=== PATIENT | female | born 1985 | race Caucasian/White ===

== ENCOUNTER → 2021-09-08 09:11 | Outpatient (CLI) | payer OTHER, SELFPAY ==
--- NOTE | 2021-09-08 09:43 | DI.US.S_ITS ---
PROCEDURE: US OB <= 14 WEEKS FETUS INDICATIONS: DATES OUTSIDE/PRIOR DATING DATA: Last menstrual period (LMP): July 02, 2021. LMP-based estimated date of delivery (NATALY): April 08, 2022. First dating scan (date and location): September 08, 2021: [facility]. Estimated date of delivery (NATALY) from first dating scan: April 23, 2022. TECHNIQUE: Real-time scanning was performed of the fetus and maternal pelvic organs, with image documentation. Endovaginal scanning was also performed to better visualize the fetus and maternal ovaries. COMPARISON: None. FINDINGS: Embryo: A single intrauterine gestation is seen with crown-rump length measuring 1.3 cm, compatible with a 7 week, 4 day gestation. Heart rate: No detectable heart rate. Maternal organs: No significant abnormality. IMPRESSION: No detectable heart rate, compatible with demise. Dictated by: Eliseo Howe M.D. on 09/08/2021 at 11:12 Approved by: Eliseo Howe M.D. on 09/08/2021 at 11:19
== END ==
PROVIDERS: PCP Acupuncturist; Referring Provider Obstetrics & Gynecology; Visit Provider Obstetrics & Gynecology
DX: Z34.01 Encounter for supervision of normal first pregnancy, first trimester (principal); Z3A.01 Less than 8 weeks gestation of pregnancy
CPT/HCPCS: 76801; 76817

== ENCOUNTER → 2022-01-02 06:28 | Outpatient (CLI) | payer OTHER, SELFPAY ==
[2022-01-02 08:28] LABS: Final Volume 0.5 mL; Semen 30 min. Liquification? Yes
== END ==
PROVIDERS: PCP Acupuncturist; Referring Provider Obstetrics & Gynecology; Visit Provider Obstetrics & Gynecology
DX: Z31.69 Encounter for other general counseling and advice on procreation (principal)
CPT/HCPCS: 58323

== ENCOUNTER → 2022-02-26 08:44 | Outpatient (CLI) | payer OTHER, SELFPAY ==
[2022-02-26 10:11] LABS: Final Volume 0.5 mL; Initial Volume 6 mL; Semen 30 min. Liquification? Yes
== END ==
PROVIDERS: PCP Family Medicine; Referring Provider Obstetrics & Gynecology; Visit Provider Obstetrics & Gynecology
DX: Z31.69 Encounter for other general counseling and advice on procreation (principal)
CPT/HCPCS: 58323

== ENCOUNTER → 2022-06-23 09:07 | Outpatient (CLI) | payer OTHER, SELFPAY ==
[2022-06-23 09:40] LABS: Initial Volume 6.5 mL; Semen 30 min. Liquification? Yes
[2022-06-23 10:16] LABS: Final Volume 0.5 mL
== END ==
PROVIDERS: PCP Family Medicine; Referring Provider Obstetrics & Gynecology; Visit Provider Obstetrics & Gynecology
DX: Z31.9 Encounter for procreative management, unspecified (principal)
CPT/HCPCS: 58323

== ENCOUNTER → 2022-10-16 12:49 | Outpatient (CLI) | payer OTHER, SELFPAY ==
[2022-10-16 13:11] LABS: Semen 30 min. Liquification? Yes
[2022-10-16 14:08] LABS: Final Volume 0.5 mL
== END ==
PROVIDERS: PCP Family Medicine; Referring Provider Obstetrics & Gynecology; Visit Provider Obstetrics & Gynecology
DX: Z31.9 Encounter for procreative management, unspecified (principal)
CPT/HCPCS: 58323

== ENCOUNTER → 2023-08-28 10:38 | Outpatient (CLI) | payer OTHER, SELFPAY ==
[2023-08-28 14:45] LABS: Urine N gonorrhoeae NOT DETECTED
[2023-08-28 15:02] LABS: Urine Chlamydia NOT DETECTED
== END ==
PROVIDERS: PCP Psychiatry & Neurology Neurology; Visit Provider Specialist
DX: Z34.81 Encounter for supervision of other normal pregnancy, first trimester (principal); Z3A.09 9 weeks gestation of pregnancy
CPT/HCPCS: 87491; 87591

== ENCOUNTER → 2023-08-29 12:02 | Outpatient (CLI) | payer OTHER, SELFPAY ==
[2023-08-29 13:59] LABS: Specimen Label NATERA TEST KIT.
== END ==
PROVIDERS: Referring Provider Specialist; Visit Provider Specialist
DX: O09.521 Supervision of elderly multigravida, first trimester (principal)
CPT/HCPCS: 36415

== ENCOUNTER → 2023-09-25 09:06 | Outpatient (CLI) | payer OTHER, SELFPAY | PROVIDERS: Visit Provider Obstetrics & Gynecology | DX: Z34.81 Encounter for supervision of other normal pregnancy, first trimester (principal); Z3A.13 13 weeks gestation of pregnancy | CPT/HCPCS: 87086 ==

== ENCOUNTER → 2023-10-11 10:16 | Outpatient (CLI) | payer OTHER, SELFPAY ==
[2023-10-11 10:54] LABS: Add Manual Diff / Slide Review NO; Basophils Absolute Auto 0 /uL (0-100); Basophils Percent Auto 0.6 % (0-2); Eosinophils Absolute Auto 100 /uL (0-450); Eosinophils Percent Auto 0.9 % (2-4); Hemoglobin 11.4 g/dL (12.0-16.0); Lymphocytes Absolute Auto 1100 /uL (1100-4500); Lymphocytes Percent Auto 19.8 % (25-40); Mean Corpuscular HGB Conc 35.7 % (30-36); Mean Corpuscular Hemoglobin 32.5 PG (26-34); Mean Corpuscular Volume 90.8 fL (80-100); Monocytes Absolute Auto 400 /uL (0-900); Monocytes Percent Auto 6.4 % (3-14); Neutrophils Absolute Auto 4100 /uL (1500-7000); Neutrophils Percent Auto 72.3 % (50-75); Platelet Count 175 X10^3/uL (150-400); Red Blood Cell Count 3.52 X10^6/uL (4.0-5.2); Red Cell Distribution Width 12.4 % (11.6-14.8); White Blood Cell Count 5.7 X10^3/uL (4.5-11.0)
[2023-10-11 11:53] LABS: Appearance Urine UA CLEAR; Bilirubin Urine UA NEGATIVE (NEGATIVE); Color Urine UA YELLOW; Glucose Urine UA NEGATIVE (Negative); Hepatitis B Surface Antigen NEGATIVE s/c (NEGATIVE); Ketones Urine UA NEGATIVE (NEGATIVE); Leukocyte Esterase Urine UA NEGATIVE (NEGATIVE); Nitrite Urine UA NEGATIVE (Negative); Occult Blood Urine UA NEGATIVE (Negative); Protein Urine UA NEGATIVE (Negative); Rubella Antibody IgG 3.8 IU/mL (>15); Specific Gravity Urine UA 1.015 (1.000-1.035); Urobilinogen Urine UA 0.2 E.U./dL (0.2)
[2023-10-11 11:56] LABS: pH Urine UA 7.5 (4.5-8.0)
[2023-10-11 12:19] LABS: HIV 1 & 2 Ab/Ag 4th Gen Combo NEGATIVE (NEGATIVE); Hep C Virus Ab w/Reflex Quant NEGATIVE s/c (NEGATIVE)
[2023-10-13 09:59] LABS: Varicella IgG Antibody 719 index (Immune >165)
[2023-10-16 10:42] LABS: AFP Value 57.5 ng/mL (.); Gest Age on Col Date 16.1 weeks (.); Gestational Age EDD (.); Insulin Dep Diabetes No (.); OSBR Risk 1IN 2398 (.); Results Report (.); Test Results *Screen Negative* (.)
[2023-10-17 08:13] LABS: RPR Screen Non Reactive (Non Reactive)
== END ==
PROVIDERS: PCP Family Medicine; Referring Provider Obstetrics & Gynecology; Visit Provider Obstetrics & Gynecology
DX: Z34.81 Encounter for supervision of other normal pregnancy, first trimester (principal); Z3A.13 13 weeks gestation of pregnancy; Z34.82 Encounter for supervision of other normal pregnancy, second trimester; Z3A.16 16 weeks gestation of pregnancy
CPT/HCPCS: 36415; 80055; 81003; 82105; 86695; 86696; 86787; 86803; 86850; 86900; 86901; 87389

== ENCOUNTER → 2023-11-14 13:02 | Outpatient (CLI) | payer OTHER, SELFPAY ==
[2023-11-14 14:31] LABS: Add Manual Diff / Slide Review NO; Basophils Absolute Auto 0 /uL (0-100); Basophils Percent Auto 0.6 % (0-2); Eosinophils Absolute Auto 100 /uL (0-450); Eosinophils Percent Auto 1.4 % (2-4); Hemoglobin 11.4 g/dL (12.0-16.0); Lymphocytes Absolute Auto 1300 /uL (1100-4500); Mean Corpuscular HGB Conc 35.6 % (30-36); Mean Corpuscular Hemoglobin 32.8 PG (26-34); Monocytes Absolute Auto 400 /uL (0-900); Neutrophils Absolute Auto 4600 /uL (1500-7000); Platelet Count 168 X10^3/uL (150-400); Red Blood Cell Count 3.48 X10^6/uL (4.0-5.2); Red Cell Distribution Width 12.4 % (11.6-14.8); White Blood Cell Count 6.3 X10^3/uL (4.5-11.0)
[2023-11-14 15:57] LABS: Aspartate Aminotransferase 22 IU/L (14-36); BUN Creatinine Ratio 8.7 (6-22); Blood Urea Nitrogen 4 mg/dL (7-17); Estimated Glomerular Filt Rate > 60 mL/min (>60); Uric Acid 2.3 mg/dL (2.5-6.2)
[2023-11-14 18:41] LABS: Creatinine Urine Random 44.1 mg/dL; Protein (Total) Urine Random 9 mg/dL (0-12)
[2023-11-15 19:41] LABS: Free T4, Direct Thyroxine 1.03 ng/dL (0.78-2.19)
[2023-11-15 19:55] LABS: Thyroid Stimulating Hormone 0.919 uIU/mL (0.47-4.68)
[2023-11-28 12:32] LABS: HSV 2 IGG AB 2.96
== END ==
PROVIDERS: PCP Family Medicine; Referring Provider Obstetrics & Gynecology; Visit Provider Obstetrics & Gynecology
DX: E03.9 Hypothyroidism, unspecified (principal); O09.812 Supervision of pregnancy resulting from assisted reproductive technology, second trimester; O09.519 Supervision of elderly primigravida, unspecified trimester
CPT/HCPCS: 36415; 82570; 84156; 84439; 84443; 84450; 84550; 85025; 86695; 86696

== ENCOUNTER → 2023-12-19 13:18 | Outpatient (CLI) | payer OTHER, SELFPAY ==
[2023-12-19 14:58] LABS: Add Manual Diff / Slide Review NO; Basophils Absolute Auto 0 /uL (0-100); Basophils Percent Auto 0.6 % (0-2); Eosinophils Absolute Auto 100 /uL (0-450); Eosinophils Percent Auto 1.3 % (2-4); Hematocrit 30.5 % (36-46); Lymphocytes Absolute Auto 1200 /uL (1100-4500); Lymphocytes Percent Auto 18.5 % (25-40); Mean Corpuscular HGB Conc 35.9 % (30-36); Mean Corpuscular Hemoglobin 32.5 PG (26-34); Mean Corpuscular Volume 90.4 fL (80-100); Monocytes Absolute Auto 400 /uL (0-900); Neutrophils Absolute Auto 4700 /uL (1500-7000); Neutrophils Percent Auto 73.6 % (50-75); Platelet Count 153 X10^3/uL (150-400); Red Blood Cell Count 3.37 X10^6/uL (4.0-5.2); Red Cell Distribution Width 12.4 % (11.6-14.8); White Blood Cell Count 6.4 X10^3/uL (4.5-11.0)
[2023-12-19 15:25] LABS: GTT (PREG) 1 Hour PP 50gm Dose 126 mg/dL (76-139)
[2023-12-19 15:59] LABS: Thyroid Stimulating Hormone 0.877 uIU/mL (0.47-4.68)
== END ==
PROVIDERS: Specialist; PCP Family Medicine; Referring Provider Obstetrics & Gynecology; Visit Provider Obstetrics & Gynecology
DX: D69.6 Thrombocytopenia, unspecified (principal); E03.9 Hypothyroidism, unspecified; Z3A.24 24 weeks gestation of pregnancy
CPT/HCPCS: 36415; 82950; 84436; 84443; 85025; 86850

== ENCOUNTER → 2024-03-16 10:50 | Outpatient (CLI) | payer OTHER, SELFPAY ==
[2024-03-16 13:55] LABS: Free T3, Triiodothyronine Free 4.16 pg/mL (2.77-5.27); Free T4, Direct Thyroxine 1.42 ng/dL (0.78-2.19)
[2024-03-16 14:08] LABS: Thyroid Stimulating Hormone 2.35 uIU/mL (0.47-4.68)
== END ==
PROVIDERS: PCP Family Medicine; Referring Provider Physician Assistant Medical; Visit Provider Physician Assistant Medical
DX: E03.9 Hypothyroidism, unspecified (principal)
CPT/HCPCS: 36415; 84439; 84443; 84481

== ENCOUNTER → 2025-11-18 12:41 | Outpatient (CLI) | payer OTHER, SELFPAY ==
[2025-11-18 13:45] LABS: Appearance Urine UA CLEAR; Bilirubin Urine UA NEGATIVE (NEGATIVE); Color Urine UA YELLOW; Glucose Urine UA NEGATIVE (Negative); Ketones Urine UA TRACE (NEGATIVE); Leukocyte Esterase Urine UA NEGATIVE (NEGATIVE); Nitrite Urine UA NEGATIVE (Negative); Occult Blood Urine UA NEGATIVE (Negative); Protein Urine UA NEGATIVE (Negative); Specific Gravity Urine UA 1.025 (1.000-1.035); Urobilinogen Urine UA 0.2 E.U./dL (0.2)
[2025-11-18 13:49] LABS: pH Urine UA 6.0 (4.5-8.0)
[2025-11-18 13:55] LABS: HEMOLYSIS < 15 (0-50); Iron 82 ug/dL (37-170)
[2025-11-18 14:06] LABS: Percent Iron Saturation 32 % (15-50); Total Iron Binding Capacity 255 ug/dL (265-497); Transferrin 217 mg/dL (206-381)
[2025-11-18 14:13] LABS: Free T4, Direct Thyroxine 1.07 ng/dL (0.78-2.19)
[2025-11-18 14:27] LABS: Thyroid Stimulating Hormone 1.23 uIU/mL (0.47-4.68)
[2025-11-18 14:32] LABS: Ferritin 48 ng/mL (6-137)
[2025-11-18 15:24] LABS: Add Manual Diff / Slide Review NO; Hematocrit 35.5 % (36-46); Hemoglobin 12.5 g/dL (12.0-16.0); Lymphocytes Absolute Auto 1200 /uL (1100-4500); Mean Corpuscular HGB Conc 35.3 % (30-36); Mean Corpuscular Hemoglobin 32.0 PG (26-34); Mean Corpuscular Volume 90.7 fL (80-100); Platelet Count 184 X10^3/uL (150-400)
[2025-11-18 16:27] LABS: HIV 1 & 2 Ab/Ag 4th Gen Combo NEGATIVE (NEGATIVE); Hep C Virus Ab w/Reflex Quant NEGATIVE s/c (NEGATIVE)
[2025-11-18 17:28] LABS: Hepatitis B Surface Antigen NEGATIVE s/c (NEGATIVE)
== END ==
PROVIDERS: PCP Family Medicine; Referring Provider Family Medicine; Visit Provider Family Medicine
DX: O09.812 Supervision of pregnancy resulting from assisted reproductive technology, second trimester (principal)
CPT/HCPCS: 36415; 80055; 81003; 82728; 83540; 83550; 84439; 84443; 86787; 86803; 86850; 86900; 86901; 87086; 87389